=== PATIENT | male | born 1985 | race Caucasian/White ===

== ENCOUNTER 2020-10-09 19:21 | Emergency (ER) | payer SELFPAY ==
[2020-10-09 19:33] VITALS: BP 150/103; PULSE 93; TEMP 98.3; BMI 48.4
== END 2020-10-09 21:01 | disposition home or self-care (01) ==
LOC: JER 19:21
DX: S91.209A Unspecified open wound of unspecified toe(s) with damage to nail, initial encounter (principal)
CPT/HCPCS: 99283-25; G2012-GT

== ENCOUNTER 2021-01-13 14:20 | Emergency (ER) | payer SELFPAY ==
[2021-01-13 14:24] VITALS: BP 126/86; PULSE 95; TEMP 98; BMI 50.2
== END 2021-01-13 15:33 | disposition home or self-care (01) ==
LOC: JERFT 14:20
DX: S93.401A Sprain of unspecified ligament of right ankle, initial encounter (principal)
CPT/HCPCS: 73610-TC-RT-FY; 73630-TC-RT-FY; 99283-25

== ENCOUNTER 2023-10-29 09:17 | Emergency (ER) | payer SELFPAY ==
[2023-10-29 09:23] VITALS: BP 132/78; PULSE 81; RESP 20; TEMP 97.5; BMI 46.6
== END 2023-10-29 13:14 | disposition home or self-care (01) ==
LOC: JERFT 09:17
DX: S20.212A Contusion of left front wall of thorax, initial encounter (principal); M54.12 Radiculopathy, cervical region; R53.1 Weakness; X50.1XXA Overexertion from prolonged static or awkward postures, initial encounter
CPT/HCPCS: 71046-TC-FY; 71101-TC-LT-FY; 73030-TC-LT-FY; 99284-25

== ENCOUNTER 2024-02-09 07:59 | Emergency (ER) | payer SELFPAY ==
[2024-02-09 08:11] VITALS: BP 137/90; PULSE 80; RESP 18; TEMP 98.3; BMI 47.3
[2024-02-09] MEDS ORDERED: ASPIRIN 81 MG CHEWABLE TABLETS ONE (10:01)
[2024-02-09] MEDS: ASPIRIN 81 MG CHEWABLE TABLETS PO ONE (10:02)
[2024-02-09 10:25] LABS: CHLORIDE 103 mmol/L (98-107); POTASSIUM 4.6 mmol/L (3.5-5.1); SODIUM 137 mmol/L (136-145)
[2024-02-09 10:28] LABS: ANION GAP 5 mmol/L (4-13); CO2 29 mmol/L (21-32); GLUCOSE,RANDOM 163 mg/dL (74-106)
[2024-02-09 10:32] LABS: CREATININE 0.8 mg/dL (0.55-1.3)
[2024-02-09 10:33] LABS: BILIRUBIN,TOTAL 0.9 mg/dL (0.2-1)
[2024-02-09 10:35] LABS: BASO % 0.8 % (0-2.0); EOS % 2.5 % (0-4.5); HEMATOCRIT 46.3 % (35.4-49); HEMOGLOBIN 16.7 GM/dL (11.7-16.9); MCH 31.2 pg (25.7-33.7); MEAN CELL VOLUME 86.8 fl (80-96); MEAN PLT VOLUME 8.1 fl (7.5-11.1); MONO % 6.1 % (3.8-10.2); NEUT % 60.6 % (42.8-82.8); PLATELET COUNT 316 10^3/uL (134-434); RBC 5.33 M/mm3 (4.00-5.60); RDW 13.5 % (11.9-15.9); WHITE BLOOD COUNT 8.4 K/mm3 (4.0-10.0)
[2024-02-09 10:56] LABS: ACTIVATED PTT 35.3 SECONDS (25.2-36.5); INR 0.97 (0.83-1.09); PROTHROMBIN TIME (PATIENT) 11.2 SEC (9.7-13.0)
[2024-02-09 11:43] LABS: ALK PHOS 83 U/L (45-117); BLOOD UREA NITROGEN 19.2 mg/dL (7-18); CALCIUM 8.6 mg/dL (8.5-10.1); TOT PROT 7.5 g/dl (6.4-8.2)
== END 2024-02-09 13:50 | disposition home or self-care (01) ==
LOC: JER 07:59
DX: R07.89 Other chest pain (principal)
CPT/HCPCS: 36415; 71046-TC-FY; 80053; 84484; 85025; 85610; 85730; 93005; 93010; 99285-25